=== PATIENT | male | born 1975 | race Caucasian/White ===

== ENCOUNTER 2018-07-07 09:37 | Emergency (ER) | payer OTHER ==
[~2018-07-07] VITALS: Ht 175.3 cm; Wt 81.9 kg
--- NOTE | 2018-07-07 10:15 | NUR ---
PT. IS A & O X WITH C/O INTERMITTENT CHEST PAIN X 1 YEAR. PT. STATES IT HAS BEEN CONSTANT X 3 MONTHS. PT. REPORTS A PAST HX OF MT AND STROKE. PT.'S 12 LEAD EKG WAS DONE. PT. HAS THE CP MONITOR IN PLACE. PT.'S LUNGS ARE CTA. MM ARE PINK AND MOIST WITH PULSES +2 THROUGHOUT. CAP REFILL IS BRISK. PT. IS RESTING WITH THE HOB ELEVATED AT 30 DEGREES. CALL LIGHT IS IN PLACE. SIDERAILS REMAIN UP X 2.
--- NOTE | 2018-07-07 10:27 | NUR ---
PT. WAS GIVEN DISCHARGE INSTRUCTIONS AND A SCRIPT WITH UNDERSTANDING VERBALIZED ALONG WITH WILLINGNESS TO COMPLY. PT. WAS AMBULATORY TO THE DISCHARGE DESK. VSS.
[2018-07-07 10:34] LABS: BASOPHILS # (AUTO) 0.01 x10^3/uL (0-0.1); BASOPHILS % (AUTO) 0 % (0-1); EOSINOPHILS # (AUTO) 0.09 x10^3/uL (0-0.4); EOSINOPHILS % (AUTO) 1 % (1-7); LYMPHOCYTES # (AUTO) 1.07 x10^3/uL (1-3.4); LYMPHOCYTES % (AUTO) 12 % (22-44); MD NO; MEAN CORPUSCULAR HGB CONC 34.8 g/dL (33.2-36.2); MEAN CORPUSCULAR VOLUME 100.7 fL (81-97); MEAN PLATELET VOLUME 7.9 fL (7.4-10.4); MONOCYTES # (AUTO) 0.68 x10^3/uL (0.2-0.8); MONOCYTES % (AUTO) 7 % (2-9); NEUTROPHILS # (AUTO) 7.45 x10^3/uL (1.8-6.8); NEUTROPHILS % (AUTO) 80 % (42-75); PLATELET COUNT 354 x10^3/uL (130-400); RED BLOOD COUNT 4.79 x10^6/uL (4.38-5.82); RED CELL DISTRIBUTION WIDTH 13.8 % (9.4-14.8)
[2018-07-07 10:42] LABS: ANION GAP 6 mmol/L (5-15); CALCIUM 9.5 mg/dL (8.5-10.1); CHLORIDE 104 mmol/L (98-107)
[2018-07-07 10:49] LABS: ALANINE AMINOTRANSFERASE 49 U/L (12-78); ALKALINE PHOSPHATASE 111 U/L (45-117); BILIRUBIN,TOTAL 0.5 mg/dL (0.2-1.0); CREATININE 0.98 mg/dL (0.7-1.3); TOTAL PROTEIN 7.5 g/dL (6.4-8.2); TROPONIN I < 0.015 ng/mL (0.000-0.045)
[2018-07-07 10:56] VITALS: BP 148/105
--- NOTE | 2018-07-07 10:57 | NUR ---
MANAGER SUBWAY TO THE BEDSIDE TO DISCUSS DR. ERNANDEZ'S WISHES TO ADMIT THE PT. PT. IS NOT WILLING TO BE HOSPITALIZED AT THIS TIME. PT. STATES HE HAS ANIMALS AT HOME AND HIS DOESN'T DRIVE. ZEINA DISCUSSED PENDING LAB VALUES WITH THE PT. WELL THE RATIONALE FOR AN EKG. PT. VERBALIZED UNDERSTANDING.
[2018-07-07] MEDS ORDERED: ASPIRIN 81 MG TABLET CHEW ONE (11:18)
--- NOTE | 2018-07-07 11:27 | NUR ---
PT. WAS WILLING TO TAKE HIS ASPIRIN. PT. SIGNED OUT AMA AT THIS TIME. RISKS WERE EXPLAINED WITH UNDERSTANDING VERBALIZED. PT. STATES HE WILL RETURN.
[2018-07-07] MEDS ORDERED: ASPIRIN 81 MG TABLET CHEW PO ONE (11:30)
[2018-07-07] MEDS ORDERED: ATEN25TA PO (15:18)
[2018-07-07] MEDS ORDERED: HYDR25TA6 PO (15:18)
[2018-07-07] MEDS ORDERED: PARO10TA56 PO (15:18)
[2018-07-08] MEDS ORDERED: ATOR40TA78 PO (13:35)
== END 2018-07-07 11:30 | disposition home or self-care (01) ==
LOC: ED 11:07
DX: R07.89 Other chest pain (principal); E78.5 Hyperlipidemia, unspecified; I10 Essential (primary) hypertension
CPT/HCPCS: 36415; 71046; 80053; 84484; 85025; 93005; 99284

== ENCOUNTER 2018-07-07 13:46 | Observation (INO) | payer OTHER ==
[~2018-07-07] VITALS: Ht 175.3 cm; Wt 81.0 kg
--- NOTE | 2018-07-07 14:52 | NUR ---
TO ROOM FROM LOBBY. NAD.
[2018-07-07] MEDS ORDERED: PARO10TA56 PO (15:18)
[2018-07-07] MEDS ORDERED: HYDR25TA6 PO (15:18)
[2018-07-07] MEDS ORDERED: ATEN25TA PO (15:18)
--- NOTE | 2018-07-07 15:18 | NUR ---
PT. RETURNS TO THE HOSPITAL FOR ADMISSION. PT. IS HAVING INTERMITTENT CHEST PAIN X 1 YEAR. PT. STATES IT IS WORSE THE LAST THREE MONTHS. PT. HAS THE CP MONITOR IN PLACE. IV ACCESS WAS ESTABLISHED. PT.'S LUNGS ARE CTA. MM ARE PINK AND MOIST WITH PULSES +2 THROUGHOUT. PT. HAS THE SIDERAILS UP X 2 AND THE CALL LIGHT IS IN PLACE.
[2018-07-07 16:20] VITALS: BP 134/92
[2018-07-07] MEDS ORDERED: ONDANSETRON 2MG/ML, 2ML IVPush PRN (17:30)
[2018-07-07] MEDS ORDERED: LABETALOL 5MG/ML, 20ML IVPush PRN (17:30)
[2018-07-07] MEDS ORDERED: ACETAMINOPHEN 325 MG TABLET PO PRN (17:30)
[2018-07-07] MEDS ORDERED: ENOXAPARIN 40 MG/0.4 ML SQ SCH (17:30)
[2018-07-07] MEDS ORDERED: NICOTINE 7 MG/24 HR PATCH.TD24 TD SCH (17:30)
[2018-07-07 18:13] LABS: TROPONIN I < 0.015 ng/mL (0.000-0.045)
[2018-07-07] MEDS: SODIUM CHLORIDE 0.9% 1,000 ML IV SCH (18:15)
[2018-07-07 20:01] VITALS: BP 122/87
[2018-07-07] MEDS ORDERED: ATORVASTATIN 80 MG TABLET PO SCH (21:00)
[2018-07-07 23:31] LABS: TROPONIN I < 0.015 ng/mL (0.000-0.045)
[2018-07-08 01:17] VITALS: BP 141/88
[2018-07-08] MEDS: SODIUM CHLORIDE 0.9% 1,000 ML IV SCH (03:49)
[2018-07-08 06:25] LABS: CHLORIDE 111 mmol/L (98-107)
[2018-07-08 06:41] LABS: ALANINE AMINOTRANSFERASE 43 U/L (12-78); ALBUMIN 3.3 g/dL (3.4-5.0); ALKALINE PHOSPHATASE 95 U/L (45-117); ANION GAP 5 mmol/L (5-15); BILIRUBIN,TOTAL 0.4 mg/dL (0.2-1.0); CALCIUM 8.6 mg/dL (8.5-10.1); CREATININE 0.94 mg/dL (0.7-1.3); TOTAL PROTEIN 6.5 g/dL (6.4-8.2)
[2018-07-08] MEDS ORDERED: PAROXETINE 20 MG TABLET ONE (08:14)
[2018-07-08 08:22] LABS: CHOL/HDL RATIO 5.4; LDL/HDL RATIO 3.1 (0.5-3.0)
[2018-07-08 08:40] LABS: HEMOGLOBIN A1C 5.4 % (4.2-6.3)
[2018-07-08] MEDS ORDERED: HYDROCHLOROTHIAZIDE 25 MG TABLET PO SCH (09:00)
[2018-07-08] MEDS ORDERED: PAROXETINE 10 MG TABLET PO SCH (09:00)
[2018-07-08] MEDS ORDERED: ASPIRIN 81 MG TABLET CHEW PO SCH (09:00)
[2018-07-08 09:21] VITALS: BP 146/100
[2018-07-08] MEDS ORDERED: ATOR40TA78 PO (13:35)
== END 2018-07-08 14:20 | disposition home or self-care (01) ==
LOC: ED 14:14 → INTOOBSV 14:15 → EDIP 14:15 → ED 14:56 → 5SO 16:47 → DCLOUNGE 07-08 14:15
PROVIDERS: ADMIT Internal Medicine; ATTEND Internal Medicine
DX: M94.0 Chondrocostal junction syndrome [Tietze] (principal); I10 Essential (primary) hypertension; E78.5 Hyperlipidemia, unspecified; F17.210 Nicotine dependence, cigarettes, uncomplicated; I25.10 Atherosclerotic heart disease of native coronary artery without angina pectoris; I25.2 Old myocardial infarction; Z82.49 Family history of ischemic heart disease and other diseases of the circulatory system; Z86.73 Personal history of transient ischemic attack (TIA), and cerebral infarction without residual deficits; Z90.79 Acquired absence of other genital organ(s)
CPT/HCPCS: 36415; 78452; 80053; 80061; 83036; 83735; 84443; 84484; 85379; 93005; 93017; 96372; 99284; A9502; C9898; G0378; J1650; J7030

== ENCOUNTER → 2018-10-26 | Outpatient (CLI) | payer OTHER ==
[~2018-10-26] MED LIST: ATEN25TA PO; ATOR40TA78 PO; HYDR25TA6 PO; PARO10TA56 PO
== END | disposition home or self-care (01) ==
LOC: CFH 09:46
PROVIDERS: ATTEND Family Medicine
DX: R94.5 Abnormal results of liver function studies (principal)
CPT/HCPCS: 76705